=== PATIENT | female | born 1980 | race Caucasian/White ===

== ENCOUNTER 2017-04-17 09:10 | Emergency (ER) | payer MEDICAID ==
[2017-04-17] MEDS ORDERED: Oxycodone/Acetaminophen 5/325 mg Tab PO PRN (09:54)
== END 2017-04-17 12:04 | disposition home or self-care (01) ==
LOC: H.EROB2 09:10
DX: O36.0931 Maternal care for other rhesus isoimmunization, third trimester, fetus 1 (principal); Z87.59 Personal history of other complications of pregnancy, childbirth and the puerperium

== ENCOUNTER 2017-07-07 09:50 | Emergency (ER) | payer MEDICAID ==
[2017-07-07] MEDS ORDERED: Lactated Ringer's 1,000 ML IV SCH (10:45)
--- NOTE | 2017-07-07 10:55 | OBHP ---
Datetime: 07/07/2017 10:44 IP Adm Impression: Term, intrauterine ; No Active Labor; Intact Membranes IP Chief Complaint Other: Diarrhea IP Admit Plan: Observation/Evaluation Admit Comment, IP Provider: [id number] IUP at 40w sent by PMD's office for diarrhea. watery, no me ds used. Occ CTX; noVB; +FM PNC: Dr Melendrez RFh neg given Rhogam at 28w acc to pt PMH: denies PSH denies Allergies POBH: x 6 PGYNH: denies STD PSoH: denies smoking EOTH drugs A; IUP at 40w Diarrhea ? dehydrated PLAN: IVF check labs Pelvic Type - PN: Adequate Extremities - PN: Normal Abdomen - PN: Normal Back - PN: Normal Breast - PN: Not Done Lungs - PN: Normal Heart - PN: Normal Thyroid - PN: Normal Neurologic - PN: Normal HEENT - PN: Normal General - PN: Normal Presentation-Admit: Vertex IP Fetus A Comments: Sonogram done cephalic FHR - Baseline A Provider: 140 Membranes, Provider: Intact Contraction Comments Provider: occ Comments, ACOG Physical Exam: ROS: General: no weakness; no fatigue HEENT: no MAHER; no visual dist CV: no palpitations; no no CP GI: no N/V + diarrhea : no F/U/D MS: No joint pain Pool Provider: Negative IP Hx Assessment: The History has been Reviewed and is Current EGA AdmitDate IP: 40.6 IP Chief Complaint: Other NICHD Variability Prov Fetus A: Moderate 6-25bpm NICHD Accel Fetus A IP Provider: 15X15 FHR Category Provider Fetus A: Category I NICHD Decel Fetus A IP Provider: None Dilatation, Provider: 3 Effacement, Provider: 0 Station, Provider: floating Genitourinary Exam: Normal DTRs - PN: Normal
[2017-07-07 11:13] LABS: BASO % 0.3 % (0.0-2.0); EOS # 0.1 K/uL (0.0-0.7); EOS % 0.9 % (0.0-4.0); HEMATOCRIT 38.3 % (34.0-47.0); LYMPH # 1.8 K/uL (1.0-4.3); LYMPH % 16.7 % (20.0-40.0); MEAN CELL VOLUME 86.6 fl (81.0-99.0); MEAN CORPUSCULAR HEMOGLOBIN 28.8 pg (27.0-31.0); MEAN CORPUSCULAR HGB CONC 33.3 g/dL (33.0-37.0); MONO # 0.9 K/uL (0.0-0.8); MONO % 8.5 % (0.0-10.0); NEUT # 7.9 K/uL (1.8-7.0); NEUT % 73.6 % (50.0-75.0); NRBC % 0.1 % (0.0-0.0); RED CELL DISTRIBUTION WIDTH 14.2 % (11.5-14.5); WHITE BLOOD COUNT 10.7 K/uL (4.8-10.8)
[2017-07-07 11:23] LABS: ALKALINE PHOSPHATASE 170 U/L (38-126); ALT/SGPT 26 U/L (9-52); AST/SGOT 21 U/L (14-36); BILIRUBIN,TOTAL 0.4 mg/dl (0.2-1.3); BLOOD UREA NITROGEN 10 mg/dl (7-17); CALCIUM 9.2 mg/dL (8.4-10.2); CARBON DIOXIDE 20 mmol/L (22-30); CHLORIDE 108 mmol/L (98-107); GFR AFRICAN-AMERICAN > 60; GLUCOSE,RANDOM 77 mg/dL (65-105); POTASSIUM 3.9 MMOL/L (3.6-5.0); SODIUM 135 mmol/l (132-148); TOTAL PROTEIN 6.8 G/DL (6.3-8.2)
--- NOTE | 2017-07-07 12:12 | OBDCSUM ---
Datetime: 07/07/2017 12:05 Discharged to, Provider: Home Follow up at, Provider: Dr Puentes Disch Instr Activity: Normal activity Disch Instr Diet: Regular Discharge Diet restrict Prov: Brat diet for now till feeling better Discharge Time: 07/07/2017 12:06 Follow up in weeks, Provider: Monday roshni MCGEE Disch Referrals: None Discharge Diagnosis Prov Other: diarrhea
== END 2017-07-07 12:27 | disposition home or self-care (01) ==
LOC: H.EROB2 09:50 → H.EROB 09:52 → H.EROB2 12:27
DX: O47.1 False labor at or after 37 completed weeks of gestation (principal); Z3A.40 40 weeks gestation of pregnancy; O48.0 Post-term pregnancy
CPT/HCPCS: 80053; 85025; 99283; J7120

== ENCOUNTER 2017-07-10 09:31 | Inpatient (IN) | payer MEDICAID ==
[2017-07-10 10:13] VITALS: BMI 40.7
[2017-07-10] MEDS: Lactated Ringer's 1,000 ML IV SCH ×3 (10:30→18:21)
[2017-07-10] MEDS ORDERED: Oxytocin 30 units/LR 500ML 30 U/500 ML BAG IV ONE (10:38)
[2017-07-10 11:10] LABS: HEMATOCRIT 38.4 % (34.0-47.0); MEAN CELL VOLUME 87.2 fl (81.0-99.0); MEAN CORPUSCULAR HGB CONC 33.2 g/dL (33.0-37.0); RED CELL DISTRIBUTION WIDTH 14.7 % (11.5-14.5); WHITE BLOOD COUNT 10.2 K/uL (4.8-10.8)
--- NOTE | 2017-07-10 11:10 | OBHP ---
Datetime: 07/10/2017 10:46 IP Adm Impression: Term, intrauterine IP Admit Plan: Admit to unit; Initiate labor induction protocol Admit Comment, IP Provider: Patient is a @ 41 wks for induction, history of obesity, Rh nega tive s/p rhogam, grandmultip. Patient otherwise has no medical problems, no previous surgeries, no ot her antepartum issues, x 6 VE=/50/-3 PNL=390 mod zoie, +accels, no decels TOCO=ctxning q 3-5 mins A/P 1. Admit patient for late term induction. Start IVF, CBC, type and screen 2. WIll start Pitocin for induction 3. Patient would possibly like an epidural for pain management 4. Will re-evaluate as needed Pelvic Type - PN: Adequate Extremities - PN: Normal Abdomen - PN: Normal Back - PN: Normal Breast - PN: Normal Lungs - PN: Normal Heart - PN: Normal Thyroid - PN: Normal Neurologic - PN: Normal HEENT - PN: Normal General - PN: Normal FHR - Baseline A Provider: 150 Membranes, Provider: Intact Contraction Comments Provider: q 3-5 mins EGA AdmitDate IP: 41.2 Vital Signs Provider: Reviewed; Within Normal Limits IP Chief Complaint: Scheduled induction of labor NICHD Variability Prov Fetus A: Moderate 6-25bpm NICHD Decel Fetus A IP Provider: None Dilatation, Provider: 4 Effacement, Provider: 50 Station, Provider: -3 Genitourinary Exam: Normal DTRs - PN: Normal
[2017-07-10] MEDS ORDERED: Lidocaine 1% Inj (20ml) ONE (12:44)
[2017-07-10] MEDS ORDERED: Fentanyl/Bupivacaine HCl 250 ML EPI ONE ×2 (14:09→15:00)
[2017-07-10] MEDS ORDERED: Lactated Ringer's 1,000 ML IV SCH (14:45)
--- NOTE | 2017-07-10 18:55 | OBPN ---
Datetime: 07/10/2017 18:47 IP Progress Impression: Normal progression of labor IP Informed Consent Obtain: Vaginal Delivery IP Procedures: Sterile Vag Exam IP Progress Plan: Continue present management Membranes, Provider: Ruptured Contraction Comments Provider: q 3 mins FHR - Baseline A Provider: 140 IP Progress Note Comment: Patient is progressing well feeling some pressure VE=9/100/0 CUM=573 mod zoie, +accels, combination of early and late decelerations with resolution A/P 1. Patient is progressing, now anterior lip/100/0. Patient has episodes of early and late decelera tions. The late decelerations resolve after a few contractions. At this point fhr is reassuring. WIll continue pitocin for augmentation 2. CEFM and TOCO 3. Re-evaluate as needed Vital Signs Provider: Reviewed; Within Normal Limits NICHD Accel Fetus A IP Provider: 15X15 NICHD Variability Prov Fetus A: Moderate 6-25bpm Dilatation, Provider: 9 Effacement, Provider: 100 Station, Provider: 0 NICHD Decel Fetus A IP Provider: Early; Late Datetime: 07/07/2017 10:44 Pool Provider: Negative IP Fetus A Comments: Sonogram done cephalic Presentation-Admit: Vertex FHR Category Provider Fetus A: Category I Datetime: 04/17/2017 12:44 Gestation - Est Wks by US: 29.2
--- NOTE | 2017-07-10 20:03 | OBDS ---
MATERNAL INFORMATION Provider Comments: of live male over intact perineum, AMA, 7lbs 14oz, 8/8, nuchal cord x 1 loose, terminal meconium, followed by shoulders and rest of , mouth and nose suctioned, cord blood obtained, placenta delivered spontaneously, fundus firm, [id number], no lacerations for repair LABOR SUMMARY EDC: 07/01/2017 00:00 No. Babies in Womb: 0 LABOR INFORMATION Onset of Labor: pt scheduled for IOL 41 wks AOG Group B Beta Strep: Negative MEMBRANES Membranes Rupture Method: Artificial Rupture of Membranes: 07/10/2017 15:55 Amniotic Fluid Color: Clear Amniotic Fluid Amount: Small Amniotic Fluid Odor: Normal PRESENTATION/POSITION BABY A Presentation: Cephalic
[2017-07-10] MEDS ORDERED: Oxycodone/Acetaminophen 5/325 mg Tab PO PRN ×4 (20:07→20:55)
[2017-07-10] MEDS ORDERED: Benzocaine/Menthol SPRAY TOP PRN (20:07)
[2017-07-11] MEDS: Benzocaine/Menthol SPRAY TOP PRN (03:14)
[2017-07-11 06:07] LABS: HEMATOCRIT 37.8 % (34.0-47.0); MEAN CORPUSCULAR HEMOGLOBIN 29.1 pg (27.0-31.0); MEAN CORPUSCULAR HGB CONC 33.4 g/dL (33.0-37.0); RED CELL DISTRIBUTION WIDTH 14.6 % (11.5-14.5); WHITE BLOOD COUNT 11.5 K/uL (4.8-10.8)
[2017-07-11] MEDS ORDERED: Multivitamin With Minerals Tab PO SCH (09:00)
[2017-07-11] MEDS: Multivitamin With Minerals Tab PO SCH (09:38)
[2017-07-11] MEDS ORDERED: Influenza Vaccine 18yr & older 0.5 ML/45 MCG SYR IM ONE ×2 (18:27→19:00)
--- NOTE | 2017-07-11 20:53 | OBPPN ---
Datetime: 07/11/2017 20:40 PP Pain Prov: Within normal limits PP Nausea Prov: Denies PP Flatus Prov: Yes PP BM Prov: Yes PP Breasts Prov: Normal PP Heart Prov: Normal PP Lungs Prov: Normal PP Abdomen/Uterus Prov: Normal PP Lochia Prov: Normal PP Vulva/Perineum Prov: Normal PP CVA Tenderness Prov: Normal PP Extremities Prov: Normal PP Progress Prov: Normal PP Impression Prov: Normal progression PP Plan Prov: Continue present management PP Progress Note Prov: She feels fine today A: S/P day 1 Rh neg (baby Rh neg) PLAN: anticiapte discharge tmrw
[2017-07-12] MEDS: Multivitamin With Minerals Tab PO SCH (08:32)
[2017-07-12] MEDS: Benzocaine/Menthol SPRAY TOP PRN (08:32)
[2017-07-12 17:01] VITALS: BP 112/74; PULSE 98; RESP 20; TEMP 97; O2SAT 100
== END 2017-07-12 12:00 | disposition home or self-care (01) | DRG 373 ==
LOC: H.L&D 09:31 → H.OB/GYN 21:20
PROVIDERS: ADMIT Obstetrics & Gynecology; ATTEND Obstetrics & Gynecology
PROC: 10E0XZZ Delivery of Products of Conception, External Approach (ICD-10-PCS; principal; 2017-07-10)
PROC: 4A1HXCZ Monitoring of Products of Conception, Cardiac Rate, External Approach (ICD-10-PCS; 2017-07-10)
DX: O76 Abnormality in fetal heart rate and rhythm complicating labor and delivery (principal); O48.0 Post-term pregnancy; O77.0 Labor and delivery complicated by meconium in amniotic fluid; Z37.0 Single live birth; O69.81X0 Labor and delivery complicated by cord around neck, without compression, not applicable or unspecified; Z3A.41 41 weeks gestation of pregnancy

== ENCOUNTER 2018-07-17 18:08 | Emergency (ER) | payer MEDICAID ==
[2018-07-17 18:09] VITALS: BMI 40.7
[2018-07-17 18:25] VITALS: BP 120/85; PULSE 84; RESP 18; TEMP 98.2; O2SAT 98
--- NOTE | 2018-07-17 18:42 | ED PDOC ---
Upper Extremity Pain/Injury Time Seen by Provider: 07/17/18 18:27 Chief Complaint (Nursing): Upper Extremity Problem/Injury Chief Complaint (Provider): left arm pain History Per: Patient History/Exam Limitations: no limitations Onset/Duration Of Symptoms: Hrs (today) Current Symptoms Are (Timing): Still Present Additional Complaint(s): Jennifer Hunter is a 37 year old right hand dominant female, with no significant past medical history, who presents to the emergency department complaining of left arm pain and lower back pain s/p a cabinet falling on top of her left arm and back while she was cooking this afternoon. No associated head injury or LOC. Patient did not take any meds for pain relief prior to arrival PMD: none Past Medical History Reviewed: Historical Data, Nursing Documentation, Vital Signs Vital Signs: Last Vital Signs Temp 98.2 F 07/17/18 18:23 Pulse 84 07/17/18 18:23 Resp 18 07/17/18 18:23 BP 120/85 07/17/18 18:23 Pulse Ox 98 07/17/18 18:23 - Medical History PMH: No Chronic Diseases - Surgical History Other surgeries: Ovarian cyst removal - Family History Family History: States: No Known Family Hx - Living Arrangements Living Arrangements: With Family - Social History Current smoker - smoking cessation education provided: No Alcohol: None Drugs: Denies - Home Medications Home Medications: Ambulatory Orders Medication Instructions Recorded Multivit/Folic Acid/I 1 tab PO DAILY 07/07/17 [ Plus] Cyclobenzaprine [Cyclobenzaprine 10 mg PO TID PRN #20 tab 07/17/18 HCl] Naproxen [Naprosyn] 500 mg PO BID #20 tab 07/17/18 - Allergies Allergies/Adverse Reactions: Allergies Allergy/AdvReac Type Severity Reaction Status Date / Time ketorolac tromethamine Allergy RASH Verified 07/17/18 18:23 [From Toradol] Review of Systems ROS Statement: Except As Marked, All Systems Reviewed And Found Negative Musculoskeletal: Positive for: Arm Pain (left), Back Pain (lower) Neurological: Positive for: Other (no head injury or LOC) Physical Exam - Reviewed Nursing Documentation Reviewed: Yes Vital Signs Reviewed: Yes - Physical Exam Appears: Positive for: Well, Non-toxic, No Acute Distress Head Exam: Positive for: ATRAUMATIC, NORMAL INSPECTION, NORMOCEPHALIC Skin: Positive for: Normal Color. Negative for: Rash Eye Exam: Positive for: Normal appearance Neck: Positive for: Painless ROM. Negative for: Pain On Movement Of Neck Cardiovascular/Chest: Positive for: Regular Rate, Rhythm Respiratory: Positive for: Normal Breath Sounds. 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 Negative for: Deformity, Swelling Neurologic/Psych: Positive for: Alert, Oriented, Gait (steady). Negative for: Motor/Sensory Deficits - Laboratory Results Urine POC: Negative - ECG O2 Sat by Pulse Oximetry: 98 (RA) Pulse Ox Interpretation: Normal - Other Rad X-ray left shoulder and humerus X-Ray: Interpreted by Me, Viewed By Me X-Ray Interpretation: no fx, no dis LS spine X-ray X-Ray: Interpreted by Me, Viewed By Me X-Ray Interpretation: no fx, no dis Medical Decision Making Medical Decision Making: Time: 18:27 Initial Impression: 37 y/o female with left arm and lower back pain Initial Plan: --Urine --Tylenol 325 mg tab 975 mg PO --Motrin tab 600 mg PO --Humerus Left [RAD] --LS Spine AP/LAT [RAD] --Shoulder Left [RAD] Patient is aware of diagnostic testing results. All questions answered. Naprosyn and Flexeril prescriptions provided. Sling was applied to left arm. Patient was referred to orthopedic on-call for follow-up. Scribe Attestation: Documented by oJhny Etienne, acting as a scribe for Oanh Holt PA-C Provider Scribe Attestation: All medical record entries made by the Scribe were at my direction and personally dictated by me. I have reviewed the chart and agree that the record accurately reflects my personal performance of the history, physical exam, medical decision making, and the department course for this patient. I have also personally directed, reviewed, and agree with the discharge instructions and disposition. Procedures - Splinting Location: Left arm Pre-Made Type: sling Pre-Proc Neuro Vasc Exam: normal Post-Proc Neuro Vasc Exam: normal Disposition - Clinical Impression Clinical Impression: Lumbar strain, Shoulder strain, Contusion shoulder/arm - Patient ED Disposition Is Patient to be Admitted: No Counseled Patient/Family Regarding: Studies Performed, Diagnosis, Need For Followup, Rx Given - Disposition Referrals: Azar Mistry MD [Medical Doctor] - Disposition: Routine/Home Disposition Time: 19:27 Condition: STABLE Additional Instructions: Ice, rest and elevate affected area. Take prescription meds as directed as needed for pain. Follow-up with orthopedist for any persistent symptoms. Prescriptions: Cyclobenzaprine [Cyclobenzaprine HCl] 10 mg PO TID PRN #20 tab PRN Reason: Muscle Spasm Naproxen [Naprosyn] 500 mg PO BID #20 tab Instructions: Contusion (DC), Lumbar Muscle Strain, Shoulder Sprain (DC) Forms: Apartment List ([employer]), [facility] ED School/Work Excuse
--- NOTE | 2018-07-18 09:27 | RAD ---
PROCEDURE: Radiographs of the left humerus. HISTORY: trauma COMPARISON: None. FINDINGS: BONES: No acute fracture or destructive bony lesion identified. SOFT TISSUES: Normal. OTHER FINDINGS: None. IMPRESSION: Normal radiographs of left humerus.
--- NOTE | 2018-07-18 09:28 | RAD ---
Date of service: 07/17/2018 PROCEDURE: Radiographs of the Lumbar Spine. HISTORY: trauma COMPARISON: No prior. FINDINGS: BONES: Normal alignment. No listhesis. No fracture. DISC SPACES: Disc height loss at L4-5 indicates degenerative disease mildly. Limited spondylosis anteriorly noted at the L1-2 level also indicates degenerative disease. OTHER FINDINGS: None. IMPRESSION: Limited degenerative disease. No fracture or spondylolisthesis identified. No destructive bony lesion evident.
--- NOTE | 2018-07-18 09:28 | RAD ---
Date of service: 07/17/2018 PROCEDURE: Radiographs of the Left Shoulder HISTORY: trauma COMPARISON: No prior. FINDINGS: BONES: No acute fracture or destructive bony lesion identified. JOINTS: Normal. Glenohumeral and acromioclavicular joints preserved. No osteoarthritis. SOFT TISSUES: Normal. OTHER FINDINGS: None. IMPRESSION: Normal radiographs of the left shoulder.
== END 2018-07-17 19:40 | disposition home or self-care (01) ==
LOC: H.ER 18:08
DX: S40.012A Contusion of left shoulder, initial encounter (principal); S39.012A Strain of muscle, fascia and tendon of lower back, initial encounter; S46.912A Strain of unspecified muscle, fascia and tendon at shoulder and upper arm level, left arm, initial encounter; W22.8XXA Striking against or struck by other objects, initial encounter; Y92.000 Kitchen of unspecified non-institutional (private) residence as the place of occurrence of the external cause